=== PATIENT | male | born 1985 | race Hispanic/Latino ===

== ENCOUNTER 2024-06-16 15:08 | Emergency (ER) | payer OTHER ==
[~2024-06-16] VITALS: Ht 170.2 cm; Wt 108.9 kg
[2024-06-16 15:29] VITALS: BP 156/83; PULSE 108; RESP 18
[2024-06-16] MEDS ORDERED: CEFTRIAXONE 1G VIAL IM ONE (15:30)
[2024-06-16] MEDS ORDERED: IBUPROFEN 800 MG TAB PO ONE (15:30)
[2024-06-16] MEDS ORDERED: IBUP-2077 PO (15:35)
[2024-06-16] MEDS ORDERED: AMOX1TAB16 PO (15:35)
[2024-06-16] MEDS ORDERED: METH4TAB3 PO (15:35)
[2024-06-16] MEDS ORDERED: LIDOCAINE HCL 1% 20 ML VIAL ONE (15:42)
== END 2024-06-16 15:54 | disposition home or self-care (01) ==
LOC: EDH 15:08
DX: J03.90 Acute tonsillitis, unspecified (principal); K02.9 Dental caries, unspecified
CPT/HCPCS: J0696